=== PATIENT | female | born 1955 | race American Indian/Alaskan Native ===

== ENCOUNTER 2021-01-30 10:04 | Observation (INO) | payer OTHER ==
[2021-01-30] MEDS ORDERED: ASPIRIN 325 MG TAB PO ONE (10:17)
--- NOTE | 2021-01-30 10:49 | XRay Report ---
CHEST 2 VIEWS INDICATION: CP. COMPARISON: None FINDINGS: SUPPORT DEVICES: None. HEART: Within normal limits. LUNGS/PLEURA: Aside from a few tiny scattered calcified granulomata, the lungs are clear. No pneumot horax. ADDITIONAL FINDINGS: None. IMPRESSION: 1. No acute findings. Signer Name: Mic Rodas MD Signed: 01/30/2021 10:44 AM Workstation Name: [id number]
--- NOTE | 2021-01-30 10:59 | Emergency Department Report ---
ED Chest Pain HPI - General Chief Complaint: Chest Pain Stated Complaint: CHEST PAIN Time Seen by Provider: 01/30/21 10:48 Source: patient, family Mode of arrival: Ambulatory Limitations: No Limitations - History of Present Illness Initial Comments: 65-year-old female, history of hypertension, diabetes, presents to ED with chest pain. Patient reports onset of left arm aching that began last night. Patient states she experienced at all throughout the night, unable to get any significant sleep. Patient reports she was unable to come to the ER last night because she did not have anyone to take care of her children at home. Patient states this morning she began to experience substernal, dull chest pain. She reports nausea with one episode of emesis. She denies any shortness of breath, pleuritic pain, leg pain or swelling. Patient denies any aggravating or alleviating factors. She denies any cough or fever. Patient reports she has been fully vaccinated for COVID-19 with [employer] vaccine. Patient denies tobacco use. She reports it has been several years since she last underwent a stress test. MD Complaint: chest pain -: Last night Onset: during rest Pain Location: substernal Pain Radiation: LUE Severity: moderate Quality: aching, dull Consistency: intermittent Improves With: nothing Worsens With: nothing re: nausea, vomting. denies: diaphoresis, dyspnea Other Symptoms: denies: cough, fever, syncope, leg swelling Treatments Prior to Arrival: none - Related Data Allergies Allergy/AdvReac Type Severity Reaction Status Date / Time Penicillins Allergy Rash Verified 01/30/21 10:12 Heart Score - HEART Score History: Moderately suspicious EKG: Normal Age: 45-65 Risk factors: 1-2 risk factors Troponin: < normal limit HEART Score: 3 - EKG Read Time Time EKG Completed: 10:41 EKG Read Time: 10:51 ED Review of Systems ROS: Stated complaint: CHEST PAIN Other details as noted in HPI Comment: All other systems reviewed and negative Constitutional: denies: chills, fever Respiratory: denies: cough, shortness of breath Cardiovascular: chest pain Gastrointestinal: nausea, vomiting Musculoskeletal: other (Denies leg pain or swelling) ED Past Medical Hx - Past Medical History Previous Medical History?: Yes Hx Hypertension: Yes Hx Diabetes: (pre-diabetic) - Surgical History Past Surgical History?: No ED Physical Exam - General Limitations: No Limitations General appearance: alert, in no apparent distress - Head Head exam: Present: atraumatic, normocephalic - Eye Eye exam: Present: normal appearance, EOMI - ENT ENT exam: Present: mucous membranes moist - Neck Neck exam: Present: normal inspection - Respiratory Respiratory exam: Present: normal lung sounds bilaterally. Absent: respiratory distress - Cardiovascular Cardiovascular Exam: Present: regular rate, normal rhythm - GI/Abdominal GI/Abdominal exam: Present: soft. Absent: distended, tenderness - Extremities Exam Extremities exam: Present: normal inspection. Absent: pedal edema, calf ten derness - Neurological Exam Neurological exam: Present: alert, oriented X3 - Psychiatric Psychiatric exam: Present: normal affect, normal mood - Skin Skin exam: Present: warm, dry, intact, normal color ED Course Vital Signs 01/30/21 01/30/21 01/30/21 10:18 11:33 11:45 Temperature 98.6 F Pulse Rate 85 70 Respiratory 18 17 Rate Blood Pressure 164/92 169/86 Blood Pressure [Right] O2 Sat by Pulse 99 97 96 Oximetry 01/30/21 01/30/21 01/30/21 12:01 12:15 12:59 Temperature Pulse Rate 83 Respiratory 21 Rate Blood Pressure 152/80 152/80 152/80 Blood Pressure [Right] O2 Sat by Pulse 96 98 97 Oximetry 01/30/21 01/30/21 01/30/21 13:00 13:15 13:31 Temperature Pulse Rate Respiratory Rate Blood Pressure 180/91 180/91 152/80 Blood Pressure [Right] O2 Sat by Pulse 97 96 97 Oximetry 01/30/21 01/30/21 01/30/21 13:45 13:52 14:00 Temperature Pulse Rate 77 84 Respiratory 18 16 Rate Blood Pressure 152/80 167/84 Blood Pressure 167/84 [Right] O2 Sat by Pulse 96 98 96 Oximetry 01/30/21 01/30/21 01/30/21 14:15 14:31 14:45 Temperature Pulse Rate 80 83 74 Respiratory 23 16 16 Rate Blood Pressure 167/84 167/84 167/84 Blood Pressure [Right] O2 Sat by Pulse 96 96 95 Oximetry 01/30/21 01/30/21 15:01 15:15 Temperature Pulse Rate 74 83 Respiratory 14 15 Rate Blood Pressure 120/71 120/71 Blood Pressure [Right] O2 Sat by Pulse 93 96 Oximetry ED Medical Decision Making - Lab Data Result diagrams: 01/30/21 10:27 01/30/21 10:27 - EKG Data -: EKG Interpreted by Me EKG shows normal: sinus rhythm, axis, intervals, QRS complexes, ST-T waves Rate: normal - EKG Data Interpretation: no acute changes - Radiology Data Radiology results: report reviewed, image reviewed - Medical Decision Making 65-year-old female presents to ED with substernal chest pain, left arm pain, nausea and vomiting. EKG and troponin are unremarkable. Chest pain is intermittent, aspirin and nitroglycerin given. Chest x-ray is unremarkable. Patient will be admitted to hospitalist, Dr. Chery, for further management. - Differential Diagnosis ACS, pneumonia, atypical chest pain Critical care attestation.: If time is entered above; I have spent that time in minutes in the direct care of this critically ill patient, excluding procedure time. ED Disposition Clinical Impression: Acute chest pain Disposition: OP ADMIT IP TO THIS HOSP Is pt being admited?: Yes Condition: Stable Time of Disposition: 12:13
[2021-01-30 11:00] LABS: Basophils % (Auto) 0.5 % (0.0-1.8); Eosinophils # (Auto) 0.1 K/mm3 (0.0-0.4); Eosinophils % (Auto) 1.3 % (0.0-4.3); Hematocrit 40.4 % (30.3-42.9); Lymphocytes # (Auto) 1.4 K/mm3 (1.2-5.4); Mean Corpuscular HGB Conc 35 % (30-34); Mean Corpuscular Volume 88 fl (79-97); Monocytes # (Auto) 0.4 K/mm3 (0.0-0.8); Monocytes % (Auto) 6.4 % (0.0-7.3); Platelet Count 195 K/mm3 (140-440); Red Blood Count 4.61 M/mm3 (3.65-5.03); Red Cell Distribution Width 13.2 % (13.2-15.2)
[2021-01-30 11:21] LABS: Alanine Aminotransferase 15 units/L (7-56); BUN/Creatinine Ratio 14; Blood Urea Nitrogen 11 mg/dL (7-17); Calcium 9.4 mg/dL (8.4-10.2); Hemolysis Index 8
--- NOTE | 2021-01-30 12:18 | History and Physical Report ---
History of Present Illness Chief complaint: My chest hurts History of present illness: 65 YO Female with DM, HTN presents to ED for evaluation. Patient reports "my chest hurts, and my left arm hurts". Patient states that she has experienced pain and weakness in her left arm as well as pain in her chest over the past 1 day with progressively worsening symptoms over the same timeframe. Patient states that her pain is substernal, dull, crushing in nature, not worsened with exertion, not relieved with rest, was initially intermittent but has become more constant over the past 24 hours. Patient also acknowledges left arm pain that begins in the cervical region and radiates down the left arm. Patient reports that pain also radiates from the chest to the left arm. Patient knowledges nausea, diaphoresis, and a single episode of emesis. Patient transported to [facility] via private vehicle for further care and evaluation of the aforementioned symptoms. The patient was seen and evaluated in the emergency department. All lab and imaging studies reviewed. Patient found to have angina, as well as clinical symptoms consistent with diastolic CHF, as well as cervical radiculopathy. Patient placed in observation status and admitted to telemetry and initiated on chest pain protocol. Patient denies fever, chills, palpitation, productive cough, skin rash, recent ill contacts, or known exposure to COVID-19. Patient reports she has been fully vaccinated for COVID-19 with [employer] vaccine. No prior admission for review. No medication listed at time of admission for reconciliation. Advanced care planning conducted in ED. Past History Past Medical History: diabetes, hypertension Past Surgical History: No surgical history, Other (Reviewed) Social history: single. denies: smoking, alcohol abuse, prescription drug abuse Family history: diabetes, hypertension Medications and Allergies Allergies Allergy/AdvReac Type Severity Reaction Status Date / Time Penicillins Allergy Rash Verified 01/30/21 10:12 Review of Systems Constitutional: no weight loss, no weight gain, no fever, no chills, no weakness Ears, nose, mouth and throat: no ear pain, no ear discharge, no tinnitis, no decreased hearing, no nose pain, no nasal congestion, no nasal discharge Breasts: no change in shape Cardiovascular: chest pain, decreased exercise tolerance, no orthopnea, no lightheadedness, no dyspnea on exertion, no paroxysmal nocturnal dyspnea Respiratory: no cough, no cough with sputum, no excessive sputum Gastrointestinal: no nausea, no vomiting, no diarrhea, no constipation Genitourinary Female: no pelvic pain, no flank pain, no dysuria, no urinary frequency, no urgency Rectal: no pain, no incontinence, no bleeding Musculoskeletal: neck pain, other (Left arm weakness), no neck stiffness, no shooting arm pain, no arm numbness/tingling Integumentary: no rash, no pruritis, no redness, no sores, no wounds Neurological: no head injury, no weakness, no numbness, no tingling, no syncope, no tremors Psychiatric: no anxiety, no change in sleep habits, no change in appetite, no change in libido, no suicidal ideation Endocrine: no cold intolerance, no excessive thirst, no polydipsia, no nocturia, no excessive sweating Hematologic/Lymphatic: no easy bruising, no easy bleeding, no lymphadenopathy Allergic/Immunologic: no allergic rhinitis, no wheezing, no persistent infections Exam - Constitutional Vitals: Temp Pulse Resp BP Pulse Ox 98.6 F 85 18 164/92 99 01/30/21 10:18 01/30/21 10:18 01/30/21 10:18 01/30/21 10:18 01/30/21 10:18 General appearance: Present: mild distress - EENT Eyes: Present: PERRL ENT: hearing intact, clear oral mucosa - Neck Neck: Present: supple, normal ROM - Respiratory Respiratory effort: normal Respiratory: bilateral: CTA - Cardiovascular Heart Sounds: Present: S1 & S2. Absent: rub, click - Extremities Extremities: pulses symmetrical, No edema Peripheral Pulses: within normal limits - Abdominal General gastrointestinal: Present: soft, non-tender, non-distended, normal bowel sounds Female genitourinary: Present: normal - Integumentary Integumentary: Present: clear, warm, dry - Musculoskeletal Musculoskeletal: gait normal, strength equal bilaterally - Psychiatric Psychiatric: appropriate mood/affect, intact judgment & insight - Neurologic Neurologic: CNII-XII intact, moves all extremities HEART Score - HEART Score Troponin: Troponin T < 0.010 ng/mL (0.00-0.029) 01/30/21 10:27 Results - Labs CBC & Chem 7: 01/30/21 10:27 01/30/21 10:27 Labs: Abnormal lab results 07/10/21 07/10/21 Range/Units 10:27 10:27 [facility] 35 H (30-34) % Chloride 97.0 L (98-107) mmol/L Glucose 260 H (65-100) mg/dL Assessment and Plan - Patient Problems (1) Angina at rest Current Visit: Yes Status: Acute Plan to address problem: Chest pain protocol: Admit to telemetry, serial cardiac enzymes, EKG, remote telemetry, echocardiogram ordered and is pending at time of admission. (2) Diastolic CHF Current Visit: Yes Status: Acute Qualifiers: Heart failure chronicity: acute Qualified Code(s): I50.31 - Acute diastolic (congestive) heart failure Plan to address problem: Admit to telemetry, strict I's/O, blood pressure control, monitor urine output every shift, daily weight, afterload reduction, echocardiogram ordered and is pending at time of admission, BNP (3) Cervical radiculopathy Current Visit: Yes Status: Acute Plan to address problem: Cervical x-ray, steroid therapy, physical therapy as outpatient, supportive care. (4) GERD (gastroesophageal reflux disease) Current Visit: Yes Status: Acute Qualifiers: Esophagitis presence: without esophagitis Qualified Code(s): K21.9 - Gastro-esophageal reflux disease without esophagitis Plan to address problem: PPI therapy, supportive care (5) DVT prophylaxis Current Visit: Yes Status: Acute Plan to address problem: SCD to bilateral lower extremities while in bed, patient is ambulatory (6) Advance care planning Current Visit: Yes Status: Acute Plan to address problem: Disease education conducted, care plan discussed, diagnosis discussed, prognosis discussed, patient is full code. Patient knowledges understanding agreement with care plan, +30 minutes.
[2021-01-30] MEDS ORDERED: ALBUTEROL 2.5 MG/3 ML NEBU IH PRN (12:22)
[2021-01-30] MEDS ORDERED: ONDANSETRON 4 MG/2 ML INJ IV PRN (12:22)
[2021-01-30] MEDS ORDERED: ACETAMINOPHEN 325 MG TAB PO PRN (12:22)
[2021-01-30] MEDS ORDERED: oxyCODONE /ACETAMINOPHEN 5-325MG TAB PO PRN (12:22)
[2021-01-30] MEDS ORDERED: HYDROmorphone 1 MG/1 ML INJ IV PRN (12:22)
[2021-01-30] MEDS ORDERED: NITROGLYCERIN 0.4 MG TAB SUBL SL PRN (12:26)
[2021-01-30] MEDS ORDERED: ONDANSETRON 4 MG/2 ML INJ IV ONE (12:27)
[2021-01-30 12:39] LABS: Bilirubin,Urine NEG (Negative); Blood,Urine NEG (Negative); Color,Urine Yellow (Yellow); RBC,Urine < 1.0 /HPF (0.0-6.0); Urobilinogen,Urine < 2.0 mg/dL (<2.0)
--- NOTE | 2021-01-30 14:51 | XRay Report ---
Cervical spine-4 views INDICATION: pain. COMPARISON: None. IMPRESSION: Normal alignment. Mild multilevel discogenic DJD and lower cervical facet arthropathy. No acute osseous or soft tissue abnormality. Signer Name: Mic Rodas MD Signed: 01/30/2021 2:47 PM Workstation Name: [id number]
[2021-01-30] MEDS: FAMOTIDINE 20 MG TAB PO SCH (21:51)
[2021-01-31 07:52] LABS: BUN/Creatinine Ratio 14; Blood Urea Nitrogen 14 mg/dL (7-17); Calcium 9.1 mg/dL (8.4-10.2); Hemolysis Index 8
--- NOTE | 2021-01-31 09:29 | Progress Note ---
Assessment and Plan Assessment and plan: Chest pain Cervical radiculopathy GERD 01/31/2021. Await cardiology recommendations regarding ischemic evaluation. Keep n.p.o. after midnight. Cardiac isoenzymes are negative. Continue to monitor on telemetry and follow-up serial EKGs. History Interval history: No new issues overnight Hospitalist Physical - Constitutional Vitals: Temp Pulse Resp BP Pulse Ox 97.9 F 82 18 145/84 96 01/31/21 04:25 01/31/21 06:00 01/31/21 05:50 01/31/21 04:25 01/31/21 04:25 General appearance: Present: mild distress - EENT Eyes: Present: PERRL, EOM intact ENT: hearing intact, clear oral mucosa, dentition normal - Neck Neck: Present: supple, normal ROM - Respiratory Respiratory effort: normal Respiratory: bilateral: CTA - Cardiovascular Rhythm: regular Heart Sounds: Present: S1 & S2. Absent: gallop, rub - Extremities Extremities: no ischemia, No edema, Full ROM - Abdominal General gastrointestinal: soft, non-tender, non-distended, normal bowel sounds - Integumentary Integumentary: Present: clear, warm, dry - Neurologic Neurologic: CNII-XII intact, moves all extremities HEART Score - HEART Score EKG: Normal Age: 45-65 Risk factors: 1-2 risk factors Troponin: Troponin T < 0.010 ng/mL (0.00-0.029) 01/30/21 23:24 Troponin: < normal limit Results - Labs CBC & Chem 7: 01/30/21 10:27 01/31/21 05:31 Labs: Laboratory Last Values WBC 6.4 K/mm3 (4.5-11.0) 01/30/21 10:27 RBC 4.61 M/mm3 (3.65-5.03) 01/30/21 10:27 Hgb 14.0 gm/dl (10.1-14.3) 01/30/21 10:27 Hct 40.4 % (30.3-42.9) 01/30/21 10:27 MCV 88 fl (79-97) 01/30/21 10:27 MCH 31 pg (28-32) 01/30/21 10:27 MCHC 35 % (30-34) H 01/30/21 10:27 RDW 13.2 % (13.2-15.2) 01/30/21 10:27 Plt Count 195 K/mm3 (140-440) 01/30/21 10:27 Lymph % (Auto) 22.0 % (13.4-35.0) 01/30/21 10:27 [place] % (Auto) 6.4 % (0.0-7.3) 01/30/21 10:27 Eos % (Auto) 1.3 % (0.0-4.3) 01/30/21 10:27 Baso % (Auto) 0.5 % (0.0-1.8) 01/30/21 10:27 Lymph # (Auto) 1.4 K/mm3 (1.2-5.4) 01/30/21 10:27 [place] # (Auto) 0.4 K/mm3 (0.0-0.8) 01/30/21 10:27 Eos # (Auto) 0.1 K/mm3 (0.0-0.4) 01/30/21 10:27 Baso # (Auto) 0.0 K/mm3 (0.0-0.1) 01/30/21 10:27 Seg Neutrophils % 69.8 % (40.0-70.0) 01/30/21 10:27 Seg Neutrophils # 4.4 K/mm3 (1.8-7.7) 01/30/21 10:27 Sodium 138 mmol/L (137-145) 01/31/21 05:31 Potassium 3.7 mmol/L (3.6-5.0) 01/31/21 05:31 Chloride 95.6 mmol/L (98-107) L 01/31/21 05:31 Carbon Dioxide 28 mmol/L (22-30) 01/31/21 05:31 Anion Gap 18 mmol/L 01/31/21 05:31 BUN 14 mg/dL (7-17) 01/31/21 05:31 Creatinine 1.0 mg/dL (0.6-1.2) 01/31/21 05:31 Estimated GFR > 60 ml/min 01/31/21 05:31 BUN/Creatinine Ratio 14 % 01/31/21 05:31 Glucose 390 mg/dL (65-100) H 01/31/21 05:31 Calcium 9.1 mg/dL (8.4-10.2) 01/31/21 05:31 Total Bilirubin 0.60 mg/dL (0.1-1.2) 01/30/21 10:27 AST 14 units/L (5-40) 01/30/21 10:27 ALT 15 units/L (7-56) 01/30/21 10:27 Alkaline Phosphatase 99 units/L (35-129) 01/30/21 10:27 Troponin T < 0.010 ng/mL (0.00-0.029) 01/30/21 23:24 NT-Pro-B Natriuret Pep 43.49 pg/mL (0-900) 01/30/21 14:36 Total Protein 6.7 g/dL (6.3-8.2) 01/30/21 10:27 Albumin 4.0 g/dL (3.9-5) 01/30/21 10:27 Albumin/Globulin Ratio 1.5 % 01/30/21 10:27 Urine Color Yellow (Yellow) 01/30/21 Unknown Urine Turbidity Clear (Clear) 01/30/21 Unknown Urine pH 6.0 (5.0-7.0) 01/30/21 Unknown Ur Specific [place] 1.013 (1.003-1.030) 01/30/21 Unknown Urine Protein 30 mg/dl mg/dL (Negative) 01/30/21 Unknown Urine Glucose (UA) >=500 mg/dL (Negative) 01/30/21 Unknown Urine Ketones Neg mg/dL (Negative) 01/30/21 Unknown Urine Blood Neg (Negative) 01/30/21 Unknown Urine Nitrite Neg (Negative) 01/30/21 Unknown Urine Bilirubin Neg (Negative) 01/30/21 Unknown Urine Urobilinogen < 2.0 mg/dL (<2.0) 01/30/21 Unknown Ur Leukocyte Esterase Neg (Negative) 01/30/21 Unknown Urine WBC (Auto) 1.0 /HPF (0.0-6.0) 01/30/21 Unknown Urine RBC (Auto) < 1.0 /HPF (0.0-6.0) 01/30/21 Unknown U Epithel Cells (Auto) 1.0 /HPF (0-13.0) 01/30/21 Unknown Grant/IV: Voiding Method Toilet Active Medications - Current Medications Current Medications: Generic Name Dose Route Start Last Admin Trade Name Freq PRN Reason Stop Dose Admin Acetaminophen 650 mg 01/30/21 12:22 Acetaminophen 325 Mg Tab PO Q4H PRN Pain MILD(1-3)/Fever >100.5/MORLEY Albuterol 2.5 mg 01/30/21 12:22 Albuterol 2.5 Mg/3 Ml Nebu IH Q4HRT PRN Shortness Of Breath Famotidine 20 mg 01/30/21 22:00 01/30/21 21:51 Famotidine 20 Mg Tab PO 20 mg BID JUSTIN Administration Hydromorphone HCl 0.5 mg 01/30/21 12:22 01/31/21 05:50 Hydromorphone 1 Mg/1 Ml Inj IV 0.5 mg Q12H PRN Administration Pain , Severe (7-10) Nitroglycerin 0.4 mg 01/30/21 12:26 Nitroglycerin 0.4 Mg Tab Subl SL .Q5MIN PRN Chest Pain Ondansetron HCl 4 mg 01/30/21 12:22 Ondansetron 4 Mg/2 Ml Inj IV Q8H PRN Nausea And Vomiting Oxycodone/Acetaminophen 1 tab 01/30/21 12:22 Oxycodone /Acetaminophen 5-325mg Tab PO Q12H PRN Pain, Moderate (4-6) Sodium Chloride 10 ml 01/30/21 22:00 01/30/21 21:52 Sodium Chloride 0.9% 10 Ml Flush Syringe IV 10 ml BID JUSTIN Administration Sodium Chloride 10 ml 01/30/21 12:22 01/31/21 05:54 Sodium Chloride 0.9% 10 Ml Flush Syringe IV 10 ml PRN PRN Administration LINE FLUSH
[2021-01-31] MEDS: FAMOTIDINE 20 MG TAB PO SCH ×2 (10:32→22:59)
--- NOTE | 2021-01-31 12:33 | Consultation ---
History of Present Illness Consult date: 01/31/21 Requesting physician: DANELLE MEDINA Consult reason: chest pain History of present illness: This patient is a 65-year-old female with a significant history of hypertension, diabetes. She is previously unknown to our practice and is not followed by a public health worker. Patient presents to [facility] with chief complaint of chest pain x1 day. Chest pain is described aching in the left shoulder and radiating to her left arm with associated numbness and tingling in the left upper extremity. The symptoms have been accompanied by nausea and vomiting x1 day. Cardiology is consulted for chest pain. At time of interview patient is currently chest pain-free with complaint of left hand tingling. She denies any dizziness, shortness of breath, abdominal pain, diarrhea, recent illness or known exposures. Patient has been fully vaccinated for COVID-19 with [employer] vaccine. Physical exam reveals clear and equal breath sounds, with bilateral lower extremity edema trace/1+. Past History Past Medical History: diabetes, hypertension, other (See HPI) Past Surgical History: No surgical history, Other (Reviewed) Social history: single. denies: smoking, alcohol abuse, prescription drug abuse Family history: diabetes, hypertension Medications and Allergies Allergies Allergy/AdvReac Type Severity Reaction Status Date / Time Penicillins Allergy Rash Verified 01/30/21 10:12 Active Meds: Active Medications Acetaminophen (Acetaminophen 325 Mg Tab) 650 mg PO Q4H PRN PRN Reason: Pain MILD(1-3)/Fever >100.5/MORLEY Albuterol (Albuterol 2.5 Mg/3 Ml Nebu) 2.5 mg IH Q4HRT PRN PRN Reason: Shortness Of Breath Famotidine (Famotidine 20 Mg Tab) 20 mg PO BID JUSTIN Last Admin: 01/31/21 10:32 Dose: 20 mg Documented by: Hydromorphone HCl (Hydromorphone 1 Mg/1 Ml Inj) 0.5 mg IV Q12H PRN PRN Reason: Pain , Severe (7-10) Last Admin: 01/31/21 05:50 Dose: 0.5 mg Documented by: Nitroglycerin (Nitroglycerin 0.4 Mg Tab Subl) 0.4 mg SL .Q5MIN PRN PRN Reason: Chest Pain Ondansetron HCl (Ondansetron 4 Mg/2 Ml Inj) 4 mg IV Q8H PRN PRN Reason: Nausea And Vomiting Oxycodone/Acetaminophen (Oxycodone /Acetaminophen 5-325mg Tab) 1 tab PO Q12H PRN PRN Reason: Pain, Moderate (4-6) Sodium Chloride (Sodium Chloride 0.9% 10 Ml Flush Syringe) 10 ml IV BID JUSTIN Last Admin: 01/31/21 10:32 Dose: 10 ml Documented by: Sodium Chloride (Sodium Chloride 0.9% 10 Ml Flush Syringe) 10 ml IV PRN PRN PRN Reason: LINE FLUSH Last Admin: 01/31/21 05:54 Dose: 10 ml Documented by: Review of Systems Constitutional: sweats, no weight loss, no weight gain, no fever, no chills, no night sweats Ears, nose, mouth and throat: no ear pain, no ear discharge, no nose pain, no nasal congestion, no nasal discharge Cardiovascular: chest pain, leg edema, no orthopnea, no palpitations, no rapid/irregular heart beat, no edema, no syncope, no lightheadedness, no shortness of breath, no dyspnea on exertion, no paroxysmal nocturnal dyspnea, no high blood pressure Respiratory: no cough, no hemoptysis, no shortness of breath, no dyspnea on exertion Gastrointestinal: nausea, vomiting, no abdominal pain, no diarrhea Genitourinary Female: no pelvic pain, no flank pain Musculoskeletal: neck stiffness, neck pain, shooting arm pain, arm n umbness/tingling, no low back pain, no shooting leg pain, no leg numbness/tingling Integumentary: no rash, no pruritis, no redness, no sores, no wounds Neurological: weakness (Left arm weakness), tingling, no head injury, no paralysis, no parathesias, no numbness, no seizures, no syncope Psychiatric: no anxiety Endocrine: no cold intolerance, no heat intolerance Hematologic/Lymphatic: no easy bruising, no easy bleeding Allergic/Immunologic: no urticaria Physical Examination Vital Signs 01/30/21 01/30/21 01/30/21 10:18 11:33 11:45 Temperature 98.6 F Pulse Rate 85 70 Respiratory 18 17 Rate Blood Pressure 164/92 169/86 Blood Pressure [Right] O2 Sat by Pulse 99 97 96 Oximetry 01/30/21 01/30/21 01/30/21 12:01 12:15 12:59 Temperature Pulse Rate 83 Respiratory 21 Rate Blood Pressure 152/80 152/80 152/80 Blood Pressure [Right] O2 Sat by Pulse 96 98 97 Oximetry 01/30/21 01/30/21 01/30/21 13:00 13:15 13:31 Temperature Pulse Rate Respiratory Rate Blood Pressure 180/91 180/91 152/80 Blood Pressure [Right] O2 Sat by Pulse 97 96 97 Oximetry 01/30/21 01/30/21 01/30/21 13:45 13:52 14:00 Temperature Pulse Rate 77 84 Respiratory 18 16 Rate Blood Pressure 152/80 167/84 Blood Pressure 167/84 [Right] O2 Sat by Pulse 96 98 96 Oximetry 01/30/21 01/30/21 01/30/21 14:07 14:15 14:31 Temperature Pulse Rate 90 80 83 Respiratory 23 16 Rate Blood Pressure 167/84 167/84 Blood Pressure [Right] O2 Sat by Pulse 96 96 Oximetry 01/30/21 01/30/21 01/30/21 14:45 15:01 15:15 Temperature Pulse Rate 74 74 83 Respiratory 16 14 15 Rate Blood Pressure 167/84 120/71 120/71 Blood Pressure [Right] O2 Sat by Pulse 95 93 96 Oximetry 01/30/21 01/30/21 01/30/21 15:21 15:31 15:41 Temperature Pulse Rate 80 71 86 Respiratory 12 17 25 H Rate Blood Pressure 120/71 120/71 120/71 Blood Pressure [Right] O2 Sat by Pulse 97 95 97 Oximetry 01/30/21 01/30/21 01/30/21 15:51 16:00 16:16 Temperature Pulse Rate 81 Respiratory 23 13 Rate Blood Pressure 120/71 120/71 120/71 Blood Pressure [Right] O2 Sat by Pulse 95 96 94 Oximetry 01/30/21 01/30/21 01/30/21 16:21 16:31 16:41 Temperature Pulse Rate Respiratory 21 23 21 Rate Blood Pressure 132/70 132/70 132/70 Blood Pressure [Right] O2 Sat by Pulse 94 95 96 Oximetry 01/30/21 01/30/21 01/30/21 16:51 17:01 17:10 Temperature Pulse Rate Respiratory 24 22 15 Rate Blood Pressure 132/70 137/76 137/76 Blood Pressure [Right] O2 Sat by Pulse 95 95 95 Oximetry 01/30/21 01/30/21 01/30/21 17:21 17:31 17:41 Temperature Pulse Rate 84 77 73 Respiratory 16 11 L 18 Rate Blood Pressure 137/76 137/76 137/76 Blood Pressure [Right] O2 Sat by Pulse 95 95 94 Oximetry 01/30/21 01/30/21 01/30/21 17:51 18:00 18:11 Temperature Pulse Rate 79 70 88 Respiratory 14 16 12 Rate Blood Pressure 137/76 139/67 139/67 Blood Pressure [Right] O2 Sat by Pulse 95 94 96 Oximetry 01/30/21 01/30/21 01/30/21 18:20 18:31 18:41 Temperature Pulse Rate 101 H 75 80 Respiratory 18 21 13 Rate Blood Pressure 139/67 139/67 139/67 Blood Pressure [Right] O2 Sat by Pulse 95 96 96 Oximetry 01/30/21 01/30/21 01/30/21 18:51 19:00 19:11 Temperature Pulse Rate 91 H 94 H Respiratory 20 17 17 Rate Blood Pressure 139/67 144/79 144/79 Blood Pressure [Right] O2 Sat by Pulse 96 95 95 Oximetry 01/30/21 01/30/21 01/30/21 19:21 19:31 19:41 Temperature Pulse Rate 74 77 Respiratory 17 16 Rate Blood Pressure 144/79 144/79 144/79 Blood Pressure [Right] O2 Sat by Pulse 93 93 95 Oximetry 01/30/21 01/30/21 01/30/21 19:51 20:01 20:11 Temperature Pulse Rate Respiratory Rate Blood Pressure 144/79 120/51 120/51 Blood Pressure [Right] O2 Sat by Pulse 94 94 94 Oximetry 01/30/21 01/30/21 01/30/21 20:21 20:31 20:41 Temperature Pulse Rate Respiratory Rate Blood Pressure 120/51 120/51 120/51 Blood Pressure [Right] O2 Sat by Pulse 95 95 95 Oximetry 01/30/21 01/30/21 01/30/21 20:51 20:59 21:12 Temperature 98.2 F 98.2 F Pulse Rate 76 80 Respiratory 18 16 Rate Blood Pressure 120/51 150/76 Blood Pressure 136/76 [Right] O2 Sat by Pulse 98 96 95 Oximetry 01/30/21 01/31/21 01/31/21 22:07 00:02 04:25 Temperature 97.8 F 97.9 F Pulse Rate 90 90 82 Respiratory 18 18 Rate Blood Pressure 153/83 145/84 Blood Pressure [Right] O2 Sat by Pulse 97 96 Oximetry 01/31/21 01/31/21 01/31/21 05:50 06:00 10:00 Temperature Pulse Rate 82 68 Respiratory 18 Rate Blood Pressure Blood Pressure [Right] O2 Sat by Pulse Oximetry General appearance: no acute distress HEENT: Positive: PERRL, Normocephaly, Mucus Membranes Moist Neck: Positive: neck supple, trachea midline Cardiac: Positive: Reg Rate and Rhythm, S1/S2 Lungs: Positive: Normal Exam, Normal Breath Sounds Neuro: Positive: Grossly Intact Abdomen: Positive: Unremarkable, Active Bowel Sounds Skin: Negative: Rash, Wound Musculoskeletal: No Pain Extremities: Present: upper extr. pulses, lower extr. pulses, +1 Edema (Trace/1+ bilateral lower extremity edema) Results 01/30/21 10:27 01/31/21 05:31 Comprehensive Metabolic Panel 01/31/21 Range/Units 05:31 Sodium 138 (137-145) mmol/L Potassium 3.7 (3.6-5.0) mmol/L Chloride 95.6 L (98-107) mmol/L Carbon Dioxide 28 (22-30) mmol/L BUN 14 (7-17) mg/dL Creatinine 1.0 (0.6-1.2) mg/dL Glucose 390 H (65-100) mg/dL Calcium 9.1 (8.4-10.2) mg/dL - Imaging and Cardiology Echo: report reviewed (Echocardiogram 01/30/2021: LVEF is 55 to 60% LV normal size. LV SF normal. LV diastolic function is normal. RV SF is normal. RVSP is 22 mmHg. No valvular abnormalities.) EKG: report reviewed, image reviewed EKG interpretations - Telemetry EKG Rhythm: Sinus Rhythm - EKG Sinus rhythms and dysrhythmias: sinus rhythm Assessment and Plan Chest pain * Chest pain is currently resolved. Patient is cardiac symptom-free. Twelve- lead ECG reviewed shows normal sinus rhythm with no acute ischemic changes. Troponins are negative x4. AMI is ruled out * Echocardiogram 01/30/2021: LVEF is 55 to 60% LV normal size. LV SF normal. LV diastolic function is normal. RV SF is normal. RVSP is 22 mmHg. No valvular abnormalities. * We will plan for Lexiscan MPI stress test in a.m. N.p.o. after midnight Hypertension * Optimize antihypertensive regimen: Initiate amlodipine 5 mg daily. * Optimize volume control: Initiate Lasix 40 mg daily p.o. daily Patient is currently in stable cardiac status. We will follow This patient was seen in conjunction with Dr Crowe who agrees with this ass essment and plan of care - Patient Problems (1) Chest pain Current Visit: Yes Status: Acute (2) Diabetes Current Visit: Yes Status: Chronic (3) Hypertension Current Visit: Yes Status: Acute (4) Cervical radiculopathy Current Visit: Yes Status: Acute (5) DVT prophylaxis Current Visit: Yes Status: Acute
[2021-01-31] MEDS: FUROSEMIDE 40 MG TAB PO SCH (14:05)
[2021-01-31] MEDS: amLODIPine 5 MG TAB PO SCH (14:05)
[2021-01-31] MEDS: metFORMIN 500 MG TAB PO SCH (22:59)
[2021-02-01 06:18] LABS: Hematocrit 37.8 % (30.3-42.9); Hemoglobin 12.9 gm/dl (10.1-14.3); Mean Corpuscular HGB Conc 34 % (30-34); Mean Corpuscular Volume 88 fl (79-97); Platelet Count 192 K/mm3 (140-440); Red Blood Count 4.29 M/mm3 (3.65-5.03)
[2021-02-01 06:34] LABS: BUN/Creatinine Ratio 17; Blood Urea Nitrogen 19 mg/dL (7-17); Calcium 8.8 mg/dL (8.4-10.2); Hemolysis Index 14
--- NOTE | 2021-02-01 08:42 | Discharge Summary ---
Providers - Providers Date of Admission: 01/30/21 12:22 Date of discharge: 02/01/21 Attending physician: DC GAYTAN 01/30/21 Consult to Cardiac Rehabilitation [CONS] Routine Reason For Exam: Phase I 01/30/21 12:26 Consult to Cardiology [CONS] Routine Consulting Provider: BLACK CHAUDHARI Reason For Exam: angina/D CHF Primary care physician: SHANTEL TOBAR Hospitalization Reason for admission: cp Condition: Stable Hospital course: 65-year-old female with past medical history of diabetes mellitus type 2, hypertension who presented to the emergency department with chief complaint of chest pain. The patient was admitted with diagnosis of chest pain and had no evidence of CHF. Chest x-ray was negative and BNP within normal limits. Patient has some left arm numbness that may be related to cervical radiculopathy. Patient's chest pain resolved after admission to the hospital. EKG showed normal sinus rhythm with no acute ischemic changes. Troponins were negative x4. Echocardiogram revealed LVEF is 55 to 60% LV normal size. LV SF normal. LV diastolic function is normal. RV SF is normal. RVSP is 22 mmHg. No valvular abnormalities. Cardiology was consulted and recommended stress test. If patient stress test is negative she will discharge home with likely diagnosis of GERD. Dedicated discharge time 35 minutes. Disposition: DC- TO HOME OR SELFCARE Final Discharge Diagnosis (Prints w/discharge instructions): Chest pain, GERD, hypertension, cervical radiculopathy Core Measure Documentation - Palliative Care Palliative Care/ Comfort Measures: Not Applicable - Core Measures Any of the following diagnoses?: none Exam - Constitutional Vitals: Temp Pulse Resp BP Pulse Ox 98.0 F 65 18 138/73 97 02/01/21 03:49 02/01/21 03:49 02/01/21 03:49 02/01/21 03:49 02/01/21 03:49 General appearance: Present: no acute distress, well-nourished - EENT Eyes: Present: PERRL ENT: hearing intact, clear oral mucosa - Neck Neck: Present: supple, normal ROM - Respiratory Respiratory effort: normal Respiratory: bilateral: CTA - Cardiovascular Heart Sounds: Present: S1 & S2. Absent: rub, click - Extremities Extremities: pulses symmetrical, No edema Peripheral Pulses: within normal limits - Abdominal General gastrointestinal: Present: soft, non-tender, non-distended, normal bowel sounds Female genitourinary: Present: normal - Integumentary Integumentary: Present: clear, warm, dry - Musculoskeletal Musculoskeletal: gait normal, strength equal bilaterally - Psychiatric Psychiatric: appropriate mood/affect, intact judgment & insight - Neurologic Neurologic: CNII-XII intact, moves all extremities Plan Activity: advance as tolerated Weight Bearing Status: Weight Bear as Tolerated Diet: regular Follow up with: SHANTEL TOBAR MD [Primary Care Provider] - 3-5 Days LOREE MCCOLLUM MD [Staff Physician] - 7 Days Prescriptions: amLODIPine 5 mg PO QDAY #30 tablet Furosemide [Lasix TAB] 40 mg PO QDAY #30 tablet Famotidine [Pepcid] 20 mg PO BID #60 tablet
[2021-02-01] MEDS ORDERED: REGADENOSON 0.4 MG/5 ML INJ IV ONE ×2 (08:51→08:56)
[2021-02-01] MEDS: metFORMIN 500 MG TAB PO SCH (10:32)
[2021-02-01] MEDS: amLODIPine 5 MG TAB PO SCH (10:32)
[2021-02-01] MEDS: FUROSEMIDE 40 MG TAB PO SCH (10:32)
[2021-02-01] MEDS: FAMOTIDINE 20 MG TAB PO SCH (10:32)
--- NOTE | 2021-02-01 11:46 | Nuclear Medicine Report ---
APPROVED REPORT Exam: Nuclear Stress Test Indication: Chest pain BMI: 0 Stress Test Details Stress Test: Exercise stress testing was performed using a Mark protocol. HR Resting HR: 71 bpm Max HR Achieved: 169 bpm Max Heart Rate (APMHR): 156 bpm Target HR (85% APMHR): 132 bpm % of APMHR: 108 Recovery HR: 81 bpm HR response to stress: Normal HR response to stress BP Resting BP: 156/72 mmHg Max BP: 185/85 mmHg Recovery BP: 137/69 mmHg BP response to stress: Normal blood pressure response to stress. ECG Resting ECG: Sinus Rhythm with non specific T wave changes in anterior leads. Stress ECG: Sinus Tachycardia ST Change: 1-[address] depressions in inferolateral leads,at peak heart rate,reverted back to normal immediately after stopping exercise. Arrhythmia: None Recovery ECG: Sinus Rhythm Recovery ST Change: ST depressions immediately after stopping exercise. Recovery Arrhythmia: None Clinical Reason for Termination: Fatigue Stress Symptoms: None Exercise duration: 6 min 02 sec Exercise capacity: 7.2 METs Overall Exercise Capacity for Age: Average Stress ECG Conclusion S.R ,with mild ST depressions at peak heart rate,immediately reverting back to baseline immediately after stopping exercise. NM EXAM: Myocardial Perfusion REST/STRESS Imaging Protocol: Rest Tc-99m/Stress Tc-99m 1 day Resting Data Rest SPECT myocardial perfusion imaging was performed in supine position 45 minutes following the intravenous injection of 10 mCi of Tc-99m Myoview. Time of rest injection: 0715 Exercise Stress At peak stress, the patient was injected intravenously with 28mCi of Tc-99m Myoview. Time of stress injection: 0927 Gated Stress SPECT was performed 30 minutes after stress injection. The images were gated to evaluate regional wall motion and calculate left ventricular ejection fraction. Study Quality Study: excellent Lung Uptake: Normal Study Data TID = 0.94. Perfusion Wall Motion The rest and stress images show normal left ventricular wall motion.LVEF post stress was noted to be 80%. Nuclear Conclusion ECG Findings: equivocal Clinical Findings: negative for ischemia Nuclear Findings: negative for ischemia Exercise Capacity: normal Left Ventricular Function: normal Risk Study: low Normal study. No scintigraphic evidence for myocardial ischemia or scar. Conclusion S.R ,with mild ST depressions at peak heart rate,immediately reverting back to baseline immediately after stopping exercise.
[2021-02-01 12:39] VITALS: BP 138/65
--- NOTE | 2021-02-01 12:45 | Progress Note ---
Assessment and Plan Chest pain * Chest pain is currently resolved. Patient is cardiac symptom-free. Twelve- lead ECG reviewed shows normal sinus rhythm with no acute ischemic changes. Troponins are negative x4. AMI is ruled out * Echocardiogram 01/30/2021: LVEF is 55 to 60% LV normal size. LV SF normal. LV diastolic function is normal. RV SF is normal. RVSP is 22 mmHg. No valvular abnormalities. * Lexiscan MPI stress test 02/01/2021: Negative for reversible defect Hypertension * Optimize antihypertensive regimen: Initiate amlodipine 5 mg daily. * Patient is near euvolemia. Optimize volume control discontinue Lasix. Patient is currently chest pain-free and stable cardiac status. Patient may discharge from cardiology standpoint. Patient may follow-up with Dr Crowe, [facility] client experience specialist within 1 to 2 weeks of discharge. (Schedule pending). #[id number] This patient was seen in conjunction with Dr Crowe who agrees with this asse ssment and plan of care - Patient Problems (1) Chest pain Current Visit: Yes Status: Acute (2) Diabetes Current Visit: Yes Status: Chronic (3) Hypertension Current Visit: Yes Status: Acute (4) Cervical radiculopathy Current Visit: Yes Status: Acute (5) DVT prophylaxis Current Visit: Yes Status: Acute Subjective Date of service: 02/01/21 Principal diagnosis: Chest Pain Interval history: Patient resting comfortably in bed. No shortness of breath or chest pain overnight Telemetry reviewed shows sinus rhythm 78 with episode of sinus tach 130. No events Objective Last Vital Signs Temp 98.2 F 02/01/21 12:18 Pulse 76 02/01/21 12:18 Resp 16 02/01/21 12:18 BP 138/65 02/01/21 12:18 Pulse Ox 98 02/01/21 12:18 - Physical Examination General: No Apparent Distress HEENT: Positive: PERRL, Normocephaly, Mucus Membranes Moist Neck: Positive: neck supple, trachea midline Cardiac: Positive: Reg Rate and Rhythm, S1/S2 Lungs: Positive: Normal Exam, Normal Breath Sounds Neuro: Positive: Grossly Intact Abdomen: Positive: Unremarkable, Active Bowel Sounds Skin: Negative: Rash, Wound Musculoskeletal: No Pain Extremities: Present: upper extr. pulses, lower extr. pulses, +1 Edema (Trace/1+ bilateral lower extremity edema) - Labs and Meds CBC 02/01/21 Range/Units 05:26 WBC 6.7 (4.5-11.0) K/mm3 RBC 4.29 (3.65-5.03) M/mm3 Hgb 12.9 (10.1-14.3) gm/dl Hct 37.8 (30.3-42.9) % Plt Count 192 (140-440) K/mm3 Comprehensive Metabolic Panel 02/01/21 Range/Units 05:26 Sodium 139 (137-145) mmol/L Potassium 3.9 (3.6-5.0) mmol/L Chloride 98.6 (98-107) mmol/L Carbon Dioxide 29 (22-30) mmol/L BUN 19 H (7-17) mg/dL Creatinine 1.1 (0.6-1.2) mg/dL Glucose 312 H (65-100) mg/dL Calcium 8.8 (8.4-10.2) mg/dL - Imaging and Cardiology EKG: report reviewed, image reviewed Nuclear stress test: report reviewed (Lexiscan MPI stress test 02/01/2021: Negative for reversible defect) Echo: report reviewed (Echocardiogram 01/30/2021: LVEF is 55 to 60% LV normal size. LV SF normal. LV diastolic function is normal. RV SF is normal. RVSP is 22 mmHg. No valvular abnormalities.) - EKG Sinus rhythms and dysrhythmias: sinus rhythm
--- NOTE | 2021-02-01 17:52 | Electrocardiograph Report ---
[facility] Test Date: 2021-01-30 Test Time: 10:10:41 Pat Name: FREIDA DOBSON Department: Room: A481 1 Gender: F Gluing Machine Operator: FANI : 1955 Requested By: MICHAEL ARITA Order Number: [id number] Reading MD: Artis Chang Measurements Intervals [place] Rate: 76 P: 60 VA: 150 QRS: 3 QRSD: 76 T: 3 QT: 391 QTc: 440 Interpretive Statements Sinus rhythm Probable left atrial enlargement Low voltage, precordial leads No previous ECG available for comparison Electronically Signed On 02-01-2021 17:51:32 EDT by Artis Chang
--- NOTE | 2021-02-01 17:58 | Electrocardiograph Report ---
[facility] Test Date: 2021-01-31 Test Time: 13:28:47 Pat Name: FREIDA DOBSON Department: Room: A481 1 Gender: F Partner: LEAH : 1955 Requested By: MICHAEL ARITA Order Number: [id number] Reading MD: Artis Chang Measurements Intervals [place] Rate: 77 P: 47 DC: 158 QRS: -7 QRSD: 94 T: -20 QT: 411 QTc: 464 Interpretive Statements Sinus rhythm Nonspecific T abnormalities, anterior leads No previous ECG available for comparison Electronically Signed On 02-01-2021 17:57:47 EDT by Artis Chang
== END 2021-02-01 16:40 | disposition home or self-care (01) ==
LOC: ED 10:04 → 4A 12:22
PROVIDERS: ADMIT Internal Medicine; ATTEND Hospitalist
DX: I20.8 Other forms of angina pectoris (principal); I11.0 Hypertensive heart disease with heart failure; I50.31 Acute diastolic (congestive) heart failure; M54.12 Radiculopathy, cervical region; R07.89 Other chest pain; K21.9 Gastro-esophageal reflux disease without esophagitis; E11.9 Type 2 diabetes mellitus without complications
CPT/HCPCS: 36415; 71046; 72040; 78452; 80048; 80053; 81001; 82962; 83880; 84484; 85025; 85027; 93005; 93017; 93306; 94640; 96374; 96375; 99285; A9502; G0378; J1170; J2405; J2785